=== PATIENT | female | born 1995 | race African-American/Black ===

== ENCOUNTER 2021-08-13 02:11 | Emergency (ER) | payer SELFPAY ==
[~2021-08-13] VITALS: Ht 170.2 cm; Wt 76.4 kg
[2021-08-13 02:30] VITALS: BP 108/60
[2021-08-13] MEDS ORDERED: IBUPROFEN 400MG TABLET PO ONE (02:45)
[2021-08-13] MEDS ORDERED: ACETAMINOPHEN 325MG TABLET PO ONE (02:45)
[2021-08-13] MEDS ORDERED: LIDOCAINE HCL 1% 20ML VIAL (Pyxis) INJ INFIL ONE (02:45)
[2021-08-13] MEDS ORDERED: IBUP-2028 MT (03:28)
[2021-08-13] MEDS ORDERED: TOPUD PO (03:28)
== END 2021-08-13 04:00 | disposition home or self-care (01) ==
LOC: ER 02:11
DX: S43.084A Other dislocation of right shoulder joint, initial encounter (principal); X58.XXXA Exposure to other specified factors, initial encounter; Y93.89 Activity, other specified; Y92.89 Other specified places as the place of occurrence of the external cause; Y99.8 Other external cause status; J45.909 Unspecified asthma, uncomplicated
CPT/HCPCS: 23650; 73030; 99284; J3490